=== PATIENT | male | born 1965 | race Caucasian/White ===

== ENCOUNTER 2017-04-06 18:11 | Emergency (ER) | payer MEDICARE, MEDICAID ==
[~2017-04-06] VITALS: Ht 167.6 cm; Wt 67.4 kg
[2017-04-06 18:14] VITALS: BP 132/83
[2017-04-06] MEDS ORDERED: IBUPROFEN 200 MG TABLET ONE (20:27)
[2017-04-06] MEDS ORDERED: IBUPROFEN 200 MG TABLET PO ONE (20:30)
== END 2017-04-06 20:34 | disposition home or self-care (01) ==
LOC: ED 20:27
DX: L02.01 Cutaneous abscess of face (principal)
CPT/HCPCS: 10060